=== PATIENT | male | born 1965 | race Caucasian/White ===

== ENCOUNTER → 2016-11-11 | Outpatient (CLI) | payer BC, OTHER ==
[~2016-11-11] MED LIST: PRIL20TA2 PO
--- NOTE | 2016-11-11 08:57 | REP ---
CT of the chest without IV contrast: There are no comparison chest CTs. There are no infiltrates or effusions. There are no masses or nodules. The lung shah are clear. The ascending thoracic aorta is dilated measuring up to 4.5 cm transverse diameter. The aortic isthmus measures up to 3.0 cm transverse diameter, upper normal. The proximal descending thoracic aorta measures 3.3 cm diameter, mildly dilated. The descending thoracic aorta tapers to 2.6 cm diameter at the diaphragmatic hiatus, borderline dilated. No focal or saccular thoracic aortic aneurysm is identified. In the absence of IV contrast the study is insensitive for aortic dissection. There is no mediastinal or axillary adenopathy. The absence of IV contrast the study is insensitive for hilar adenopathy. Cardiac size is normal. There is no pericardial effusion. There is atheromatous calcification in the intraventricular annulus. The visualized upper abdominal contents are unremarkable. Impression: Thoracic aortic measurements are as described above. Calcified atheroma in the intraventricular annulus. Otherwise, negative CT study of the chest. Signed by Dilip Petersen MD 11/11/2016 08:48 A
== END ==
LOC: M RAD 07:16
PROVIDERS: ATTEND Internal Medicine Cardiovascular Disease
DX: I71.2 Thoracic aortic aneurysm, without rupture (principal)

== ENCOUNTER → 2016-11-30 | Outpatient (CLI) | payer BC, OTHER ==
[2016-11-30 14:08] LABS: ANION GAP 5 MEQ/L (8-16); BLOOD UREA NITROGEN 14 MG/DL (7-18); CALCIUM LEVEL 8.4 MG/DL (8.5-10.1); CARBON DIOXIDE LEVEL 26 MEQ/L (21-32); CHLORIDE LEVEL 108 MEQ/L (98-107); CREATININE FOR GFR 0.82 MG/DL (0.70-1.30); GLOMERULAR FILTRATION RATE > 60.0 (>56); GLUCOSE, FASTING 85 MG/DL (70-105); POTASSIUM SERUM 4.6 MEQ/L (3.5-5.1); SODIUM LEVEL 139 MEQ/L (136-145)
== END ==
LOC: M SMT 08:43
PROVIDERS: ATTEND Internal Medicine Cardiovascular Disease
DX: R00.2 Palpitations (principal)

== ENCOUNTER 2017-11-24 12:16 | Outpatient (RCR) | payer BC, OTHER | END 2017-12-21 | LOC: M CR 12:16 | DX: Z95.3 Presence of xenogenic heart valve (principal); I35.0 Nonrheumatic aortic (valve) stenosis | CPT/HCPCS: 93798 ==

== ENCOUNTER 2017-12-22 09:08 | Outpatient (RCR) | payer BC, OTHER | END 2018-01-20 | LOC: M CR 09:08 | DX: Z95.3 Presence of xenogenic heart valve (principal); I35.0 Nonrheumatic aortic (valve) stenosis | CPT/HCPCS: 93798 ==

== ENCOUNTER 2018-01-29 14:35 | Outpatient (RCR) | payer BC, OTHER | END 2018-02-20 | LOC: M CR 01-31 10:35 | DX: Z95.3 Presence of xenogenic heart valve (principal) | CPT/HCPCS: 93798 ==

== ENCOUNTER 2018-08-28 06:54 | Day surgery (SDC) | payer BC, OTHER ==
[~2018-08-28] VITALS: Ht 180.3 cm; Wt 109.8 kg
[~2018-08-28 06:54] MED LIST changes: +APAP325T4 PO; +BAYE325T12 PO; +COLA100C5 PO; +FERR32TA PO; +METO1TAB87 PO; +NS 1,000 ML IV ONE; +SODI0.65
[2018-08-28] MEDS ORDERED: AMOX500C PO (08:30)
--- NOTE | 2018-08-28 09:29 | ROOR ---
Patient Name: Rex Garay Procedure Date: 08/28/2018 9:08 AM Date of : 1965 Age: 53 Room: [facility] Gender: Male Note Status: Finalized Procedure: Colonoscopy Indications: High risk colon cancer surveillance: Personal history of colonic polyps, Family history of colon cancer in a first-degree relative Providers: Krish FRANCOIS MD Referring MD: AMARA WILLETT Requesting Provider: Medicines: Monitored Anesthesia Care Complications: No immediate complications. Procedure: Pre-Anesthesia Assessment: - The heart rate, respiratory rate, oxygen saturations, blood pressure, adequacy of pulmonary ventilation, and response to care were monitored throughout the procedure. The Colonoscope was introduced through the anus and advanced to the cecum, identified by appendiceal orifice and ileocecal valve. The colonoscopy was performed with difficulty due to inadequate bowel prep. Successful completion of the procedure was aided by lavage. The patient tolerated the procedure well. Findings: The perianal and digital rectal examinations were normal. (Colon Prep was POOR, Inadequate Visualisation) The colon is grossly normal without large tumors or obstructing lesions. Unable to perform adequate detail examination. Small lesions may have been missed. Impression: - (Colon Prep was POOR, Inadequate Visualisation) - The colon is grossly normal without large tumors or obstructing lesions. Unable to perform adequate detail examination. Small lesions may have been missed. - No specimens collected. Recommendation: - Repeat colonoscopy at next available appointment (within 3 months) because the bowel preparation was poor. - My office will put you on a recall schedule. You will be notified at the appropriate time for follow up. Krish Francois MD Krish FRANCOIS MD 08/28/2018 9:29:21 AM This report has been signed electronically. Number of Addenda: 0 Note Initiated On: 08/28/2018 9:08 AM Estimated Blood Loss: Estimated blood loss: none. Estimated blood loss: none.
[2018-08-28 09:49] VITALS: BP 136/86
== END 2018-08-28 09:57 | disposition home or self-care (01) ==
LOC: M OPP 06:54
PROVIDERS: ATTEND Internal Medicine Gastroenterology
DX: Z86.010 Personal history of colon polyps (principal); Z80.0 Family history of malignant neoplasm of digestive organs; Z79.82 Long term (current) use of aspirin; Z95.3 Presence of xenogenic heart valve

== ENCOUNTER 2018-09-18 10:09 | Day surgery (SDC) | payer BC, OTHER ==
[~2018-09-18] VITALS: Ht 182.9 cm; Wt 108.0 kg
[~2018-09-18 10:09] MED LIST changes: +AMOX500C PO; +ASPI81TA85 PO
[2018-09-18] MEDS ORDERED: LIDOCAINE 2% INJ 100 MG/5 ML SDV (FOR ANES.) As Ordered ONE (10:19)
[2018-09-18] MEDS ORDERED: PROPOFOL 200 MG/20 ML VIAL As Ordered ONE ×2 (10:20→11:05)
--- NOTE | 2018-09-18 11:18 | ROOR ---
Patient Name: Rex Garay Procedure Date: 09/18/2018 10:47 AM Date of : 1965 Age: 53 Room: [facility] Gender: Male Note Status: Finalized Procedure: Colonoscopy Indications: High risk colon cancer surveillance: Personal history of colonic polyps, Family history of colon cancer in a first-degree relative Providers: Krish FRANCOIS MD Referring MD: AMARA WILLETT Requesting Provider: Medicines: Monitored Anesthesia Care Complications: No immediate complications. Procedure: Pre-Anesthesia Assessment: - The heart rate, respiratory rate, oxygen saturations, blood pressure, adequacy of pulmonary ventilation, and response to care were monitored throughout the procedure. The Colonoscope was introduced through the anus and advanced to the terminal ileum, with identification of the appendiceal orifice and IC valve. The colonoscopy was performed without difficulty. The patient tolerated the procedure well. The quality of the bowel preparation was good. Findings: External and internal hemorrhoids were found during retroflexion and during perianal exam. The hemorrhoids were moderate. Five sessile polyps were found in the sigmoid colon, descending colon and splenic flexure. The polyps were diminutive in size. These polyps were removed with a cold snare. Resection and retrieval were complete. The exam was otherwise without abnormality on direct and retroflexion views. Impression: - Moderate external and internal hemorrhoids. - Five diminutive polyps in the sigmoid, descending colon and at the splenic flexure, removed with a cold snare. Resected and retrieved. - The examination was otherwise normal on direct and retroflexion views. Recommendation: - Repeat colonoscopy in 3 years for adenoma surveillance. - Telephone endoscopist for pathology results in 2 weeks. Krish Francois MD Krish FRANCOIS MD 09/18/2018 11:18:03 AM This report has been signed electronically. Number of Addenda: 0 Note Initiated On: 09/18/2018 10:47 AM Estimated Blood Loss: Estimated blood loss: none.
[2018-09-18 11:35] VITALS: BP 98/59
== END 2018-09-18 11:46 | disposition home or self-care (01) ==
LOC: M OPP 10:09
PROVIDERS: ATTEND Internal Medicine Gastroenterology
DX: K64.8 Other hemorrhoids (principal); D12.5 Benign neoplasm of sigmoid colon; D12.4 Benign neoplasm of descending colon; D12.3 Benign neoplasm of transverse colon; Z09 Encounter for follow-up examination after completed treatment for conditions other than malignant neoplasm; Z86.010 Personal history of colon polyps; Z80.0 Family history of malignant neoplasm of digestive organs; Z79.82 Long term (current) use of aspirin; Z95.2 Presence of prosthetic heart valve

== ENCOUNTER → 2021-11-11 | Outpatient (CLI) | payer BC, OTHER ==
[~2021-11-11] MED LIST changes: -ASPI81TA85 PO; +ASPI81TA86 PO; -NS 1,000 ML IV ONE
== END ==
LOC: M LABSMTC 10:31
PROVIDERS: ATTEND Anesthesiology
DX: Z01.812 Encounter for preprocedural laboratory examination (principal); Z20.822 Contact with and (suspected) exposure to COVID-19

== ENCOUNTER 2021-11-16 09:47 | Day surgery (SDC) | payer BC, OTHER ==
[~2021-11-16] VITALS: Ht 177.8 cm; Wt 112.0 kg
[~2021-11-16 09:47] MED LIST changes: +LIDOCAINE 2% 100MG/5ML SDV (FOR ANES.) As Ordered ONE; +NS 1,000 ML IV ONE; +propofoL 200 MG/20 ML VIAL As Ordered ONE
[2021-11-16] MEDS ORDERED: propofoL 200 MG/20 ML VIAL As Ordered ONE (11:20)
[2021-11-16 11:50] VITALS: BP 129/83
== END 2021-11-16 12:02 | disposition home or self-care (01) ==
LOC: M OPP 09:47
PROVIDERS: ATTEND Internal Medicine Gastroenterology
DX: Z12.11 Encounter for screening for malignant neoplasm of colon (principal); Z86.010 Personal history of colon polyps; Z80.0 Family history of malignant neoplasm of digestive organs; Z80.42 Family history of malignant neoplasm of prostate; K64.8 Other hemorrhoids; R12 Heartburn; G47.33 Obstructive sleep apnea (adult) (pediatric); Z79.1 Long term (current) use of non-steroidal anti-inflammatories (NSAID); Z87.891 Personal history of nicotine dependence; Z95.3 Presence of xenogenic heart valve

== ENCOUNTER → 2023-02-27 | Outpatient (CLI) | payer BC, OTHER ==
[~2023-02-27] MED LIST changes: -LIDOCAINE 2% 100MG/5ML SDV (FOR ANES.) As Ordered ONE; -NS 1,000 ML IV ONE; -propofoL 200 MG/20 ML VIAL As Ordered ONE
== END ==
LOC: M SLEEP 20:00
PROVIDERS: ATTEND Physician Assistant
DX: G47.33 Obstructive sleep apnea (adult) (pediatric) (principal)

== ENCOUNTER → 2024-08-14 | Outpatient (CLI) | payer OTHER ==
[~2024-08-14] MED LIST changes: -BAYE325T12 PO; +BAYE325T2 PO
== END ==
LOC: M SLEEP 20:00
PROVIDERS: ATTEND Physician Assistant
DX: G47.33 Obstructive sleep apnea (adult) (pediatric) (principal)